=== PATIENT | male | born 2000 | race Caucasian/White ===

== ENCOUNTER 2024-08-08 23:48 | Emergency (ER) | payer OTHER, SELFPAY ==
[2024-08-08 23:56] VITALS: BP 147/84; PULSE 90; RESP 18; O2SAT 97
[2024-08-09] VITALS (7 sets, daily range): BP systolic 128–147; BP diastolic 62–86; PULSE 65–84; RESP 16–18; TEMP 36.7; O2SAT 94–99; BMI 34.3
--- NOTE | 2024-08-09 01:09 | ED_ITS ---
HPI - Nausea/Vomiting/Diarrhea General Chief complaint: Nausea/Vomiting/Diarrhea Stated complaint: nausea Time Seen by Provider: 08/09/24 01:09 Source: patient Mode of arrival: Ambulatory History of Present Illness HPI Narrative: patient is a 23-year-old is a transitioning female to male on weekly testosterone presents for evaluation of chest pain, as well as nausea. Patient stating that the chest pain has been intermittent ongoing for the past several weeks but today also had some nausea no vomiting after he had some Romansh food therefore decided to come into the ED for further evaluation treatment. Did have 1 episode of diarrhea but denies any bright red blood per rectum melanotic stools. States that he has not currently having any symptoms at this time but due to the constellation of his symptoms wanted to be checked out. Related Data Allergies Allergy/AdvReac Type Severity Reaction Status Date / Time No Known Drug Allergies Allergy Verified 08/09/24 01:21 Review of Systems Review of Systems Narrative: General: Denies fever, chills, weight loss HEENT: Denies headache, eye drainage, eye irritation, head trauma, sore throat, voice change Cardiovascular: Denies any chest pain, palpitations, shortness of breath, tachycardia Respiratory: Denies any shortness of breath, cough, wheeze, stridor GI/: Positive epigastric pain,, nausea, delete diarrhea, denies, vomiting bright red blood per rectum, melanotic stools, urinary frequency, urinary retention, dysuria, hematuria MSK: Denies any joint pain, muscle pains, swelling Skin: Denies any rashes, lesions, discoloration Neuro: Denies any headache, lightheadedness, dizziness, fainting, weakness Psych: Denies SI/HI Exam Narrative Exam Narrative: General: Cooperative, comfortable, well-developed, not in acute distress HEENT: Normocephalic, atraumatic, PERRLA, normal sclera, eyelids normal, Neck: Active full range of motion, atraumatic Chest: Normal to inspection, negative crepitus, no overlying erythema ecchymosis Respiratory: Normal respiratory effort, not in acute respiratory distress, clear to auscultation bilaterally negative cough, wheeze, tachypnea, rhonchi, rales Cardiology: Regular rate rhythm negative gallop, murmur, rubs GI/: Normal to inspection, soft, nonrigid, no tenderness to palpation, exam deferred MSK: Full range of active range of motion of all 4 extremities, atraumatic Skin: No rashes lesions noted Neuro: Alert awake oriented x3, moves all 4 extremities spontaneously, cranial nerves intact, able to answer all questions appropriately follows commands appropriately Psych: Cooperative, negative suicidal or homicidal ideations Initial Vital Signs Initial Vital Signs: Vital Signs Temperature 98.1 F 08/09/24 00:01 Pulse Rate 84 08/09/24 00:01 Respiratory Rate 17 08/09/24 00:01 Blood Pressure 147/84 H 08/09/24 00:01 Pulse Oximetry 98 08/09/24 00:01 Oxygen Delivery Method Room Air 08/09/24 00:01 Course Orders Ordered: ED Orders 08/09/24 01:16 XR chest 1V Stat EKG-12 Lead Stat 08/09/24 01:46 Complete Blood Count AUTO DIFF Stat Comprehensive Metabolic Panel Stat Lipase Stat Troponin & CK Cardiac Panel Stat Discontinued Medications Aspirin (Aspirin 81 Mg Chew Tab) 324 mg PO NOW ONE Stop: 08/09/24 01:17 Last Admin: 08/09/24 01:22 Dose: 324 mg Documented By: BRET Vital Signs Vital signs: Vital Signs - 8 hr 08/09/24 00:01 Temperature 98.1 F Pulse Rate 84 Respiratory Rate 17 Blood Pressure 147/84 H Pulse Oximetry 98 Oxygen Delivery Method Room Air MDM - Nausea/Vomiting/Diarrhea Differential Diagnosis Differential diagnosis: Likely food poisoning, dehydration and other ( ACS, pneumonia, GERD) Lab Data 08/09/24 01:46 08/09/24 01:46 Labs: Lab Results 08/09/24 Range/Units 01:46 WBC 11.5 H (4.5-11.0) X10^3/uL RBC 4.89 (4.5-5.9) X10^6/uL Hgb 15.6 (13.5-17.5) g/dL Hct 44.0 (41-53) % MCV 89.9 (80-100) fL MCH 31.8 (26-34) PG MCHC 35.4 (30-36) % RDW 12.4 (11.6-14.8) % Plt Count 251 (150-400) X10^3/uL Neut % (Auto) 57.6 (50-75) % Lymph % (Auto) 30.5 (25-40) % [place] % (Auto) 8.9 (3-14) % Eos % (Auto) 2.2 (2-4) % Baso % (Auto) 0.8 (0-2) % Neut # (Auto) 6600 (5495-8147) /uL Lymph # (Auto) 3500 (1589-7070) /uL [place] # (Auto) 1000 H (0-900) /uL Eos # (Auto) 300 (0-450) /uL Baso # (Auto) 100 (0-100) /uL Sodium 136 L (137-145) mmol/L Potassium 3.6 (3.4-5.1) mmol/L Chloride 104 (98-107) mmol/L Carbon Dioxide 24 (22-32) mmol/L BUN 13 (9-20) mg/dL Creatinine 0.98 (0.66-1.25) mg/dL Estimated GFR > 60 (>60) mL/min BUN/Creatinine Ratio 13.3 (6-22) Glucose 108 H (70-100) mg/dL Calcium 8.9 (8.4-10.2) mg/dL Total Bilirubin 0.5 (0.2-1.3) mg/dL AST 24 (17-59) IU/L ALT 24 (<50) IU/L Alkaline Phosphatase 47 (38-126) U/L Total Creatine Kinase 62 (55-170) U/L Troponin I < 0.012 (0.01-0.034) ng/mL Total Protein 6.9 (6.3-8.2) g/dL Albumin 4.0 (3.5-5.0) g/dL Globulin 2.9 (1.7-4.1) g/dL Albumin/Globulin Ratio 1.4 (1.0-2.8) Lipase 55 (23-300) U/L Imaging Data Chest x-ray: Radiologist's Impression: [address] [address] XRay Report Signed Patient: Akil Perez MR#: [id number] : 2000 Acct:[id number] Age/Sex: 23 / M Date of Service: 08/09/24 Loc: ED Accession Number: [id number] Procedure: XR chest 1V Ordering Provider: Vimal Groves D.O. PROCEDURE: XR CHEST 1V INDICATIONS: chest pain TECHNIQUE: One view of the chest was acquired. COMPARISON: None. FINDINGS: Surgical changes and devices: None. Lungs and pleura: Lungs are clear. No pleural effusions or pneumothorax. Mediastinum: Mediastinal contours appear normal. Heart size is normal. Bones and chest wall: No suspicious bony lesions. Overlying soft tissues appear unremarkable. IMPRESSION: No acute cardiopulmonary abnormality is seen. ECG Data Interpretation: EKG interpreted ED physician sinuses 60 beats per minute, QTC 401, normal axis, nonspecific ST changes, no STEMI MDM Narrative Medical decision making narrative: patient is a 23-year-old transitioning female to male on weekly testosterone coming in complaining of intermittent chest pain ongoing and persistent for the past several weeks, no shortness of breath. States that today he did go out to eat some Romansh food had episode nausea vomiting and diarrhea and felt like symptoms of his chest pain started getting worse therefore decided come into the ED for further evaluation treatment. He denies any current chest pain at this time. 0230: Patient re-evaluated no new complaints at this time stating improved symptoms here in the emergency department, patient with a heart score of 0, patient was given strict return precautions verbalized understanding of this informed to follow up with Cardiology and primary care in outpatient setting verbalized understanding of this and agrees to being discharged home with outpatient follow up. Discharge Plan Departure Patient Disposition: Home Clinical Impression: Chest pain Activity Restrictions/Additional Instructions: please follow up with Cardiology and primary care Please read the discharge instructions sheet carefully and bring all papers to all doctor follow-up visits, as it may contain information that your doctor may want to see. Disease processes change and evolve, if your symptoms worsen or if you develop any new symptoms that are concerning to you please return for evaluation. Your evaluation today does not show any evidence of any life- threatening/serious illnesses requiring admission to the hospital or surgery. Please follow-up with your doctor for re-evaluation in approximately 1 day. Seek immediate medical attention for any worrisome symptoms. Referrals: Clayton Wells MD [Physician] - Stand Alone Forms: Patient Portal/API/Survey
--- NOTE | 2024-08-09 01:16 | DI.RAD.S_ITS ---
PROCEDURE: XR CHEST 1V INDICATIONS: chest pain TECHNIQUE: One view of the chest was acquired. COMPARISON: None. FINDINGS: Surgical changes and devices: None. Lungs and pleura: Lungs are clear. No pleural effusions or pneumothorax. Mediastinum: Mediastinal contours appear normal. Heart size is normal. Bones and chest wall: No suspicious bony lesions. Overlying soft tissues appear unremarkable. IMPRESSION: No acute cardiopulmonary abnormality is seen. Approved by: Andrey Hoang M.D. on 08/09/2024 at 1:35
[2024-08-09] MEDS: ASPIRIN 81 MG CHEW TAB 324 MG PO (01:22)
--- NOTE | 2024-08-09 01:22 | EKG_ITS ---
[facility] [address] [address] Test Date: 2024-08-09 Pat Name: Akil Perez Department: [facility] Room: Gender: Male [employer] Operator: LAUREANO : 2000 Requested By: Order Number: [id number] Reading MD: Ace Pedro MD Measurements Intervals [place] Rate: 63 P: 54 [place]: 172 QRS: 35 QRSD: 78 T: 17 QT: 392 QTc: 401 Interpretive Statements Normal sinus rhythm Electronically Signed On 08-09-2024 7:20:55 PST by Ace Pedro MD
[2024-08-09 01:57] LABS: Add Manual Diff / Slide Review NO; Basophils Absolute Auto 100 /uL (0-100); Basophils Percent Auto 0.8 % (0-2); Eosinophils Absolute Auto 300 /uL (0-450); Eosinophils Percent Auto 2.2 % (2-4); Hemoglobin 15.6 g/dL (13.5-17.5); Lymphocytes Absolute Auto 3500 /uL (1100-4500); Lymphocytes Percent Auto 30.5 % (25-40); Mean Corpuscular HGB Conc 35.4 % (30-36); Mean Corpuscular Hemoglobin 31.8 PG (26-34); Mean Corpuscular Volume 89.9 fL (80-100); Monocytes Absolute Auto 1000 /uL (0-900); Monocytes Percent Auto 8.9 % (3-14); Neutrophils Absolute Auto 6600 /uL (1500-7000); Neutrophils Percent Auto 57.6 % (50-75); Platelet Count 251 X10^3/uL (150-400); Red Blood Cell Count 4.89 X10^6/uL (4.5-5.9); Red Cell Distribution Width 12.4 % (11.6-14.8); White Blood Cell Count 11.5 X10^3/uL (4.5-11.0)
[2024-08-09 02:10] LABS: Alanine Aminotransferase 24 IU/L (<50); Albumin Globulin Ratio 1.4 (1.0-2.8); Alkaline Phosphatase 47 U/L (38-126); Aspartate Aminotransferase 24 IU/L (17-59); BUN Creatinine Ratio 13.3 (6-22); Bilirubin Total 0.5 mg/dL (0.2-1.3); Blood Urea Nitrogen 13 mg/dL (9-20); Calcium 8.9 mg/dL (8.4-10.2); Carbon Dioxide 24 mmol/L (22-32); Chloride 104 mmol/L (98-107); Creatine Kinase 62 U/L (55-170); Estimated Glomerular Filt Rate > 60 mL/min (>60); Globulin 2.9 g/dL (1.7-4.1); Glucose 108 mg/dL (70-100); HEMOLYSIS 20 (0-50); Lipase 55 U/L (23-300); Potassium 3.6 mmol/L (3.4-5.1); Sodium 136 mmol/L (137-145); Total Protein 6.9 g/dL (6.3-8.2)
[2024-08-09 02:22] LABS: Troponin I < 0.012 ng/mL (0.01-0.034)
== END 2024-08-09 02:38 | disposition home or self-care (01) ==
PROVIDERS: Emergency Provider Student in an Organized Health Care Education/Training Program
DX: R07.9 Chest pain, unspecified (principal); R11.0 Nausea; R10.13 Epigastric pain
CPT/HCPCS: 36415; 71045; 80053; 82550; 83690; 84484; 85025; 93005; 93010; 99283; 99284